=== PATIENT | female | born 1970 | race Caucasian/White ===

== ENCOUNTER 2017-06-16 22:09 | Emergency (ER) | payer OTHER, BC ==
[2017-06-16] MEDS ORDERED: EMTRICITABINE 200MG/TENOFOVIR 300MG PO STA (22:12)
[2017-06-16] MEDS ORDERED: RALTEGRAVIR POTASSIUM 400 MG TAB PO ONE (22:15)
[2017-06-16 22:16] VITALS: BP 110/77; PULSE 79; TEMP 98.3; BMI 23.6
--- NOTE | 2017-06-16 22:33 | PDOC ---
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 blood exposure, unknown status of patient referred here by K[facility] for PEP pmh: denies fhx: non-contrib ros: reviewed and otherwise negative o/e NAD nonicteric RRR cta a/p blood exposure d/w p r/b of PEP will initiate has [facility] fu tomorrow Past History - Past Medical History Allergies/Adverse Reactions: Allergies Allergy/AdvReac Type Severity Reaction Status Date / Time Sulfa (Sulfonamide Allergy Unknown Verified 06/16/17 22:11 Antibiotics) [Sulfa(Sulfonamide Antibiotics)] morphine Allergy Verified 06/16/17 22:11 Home Medications: Ambulatory Orders NK [No Known Home Medication] 10/14/15 Anemia: No Cancer: No Diabetes: No HTN: No Psychiatric Problems: No Seizures: No - Surgical History Appendectomy: Yes Neurologic Surgery: Yes (NECK C2-T2 FUSION 7 YEARS AGO) - Immunization History Td Vaccination: Yes TDAP Vaccination: Yes Immunization Up to Date: Yes - Suicide/Smoking/Psychosocial Hx Smoking Status: No Smoking History: Never smoked Years of Tobacco Use: 0 Have you smoked in the past 12 months: No Number of Cigarettes Smoked Daily: 0 Cigars Per Day: 0 Hx Alcohol Use: No Drug/Substance Use Hx: No Substance Use Type: None Hx Substance Use Treatment: No *DC/Admit/Observation/Transfer Diagnosis at time of Disposition: Occupational exposure in workplace - Discharge Dispostion Disposition: HOME Condition at time of disposition: Stable - Referrals - Patient Instructions Additional Instructions: Please follow up with KIRSTEN occupational health in AM - Post Discharge Activity Forms/Work/School Notes: Back to Work
== END 2017-06-16 22:41 | disposition home or self-care (01) ==
LOC: FER 22:09
DX: Z77.21 Contact with and (suspected) exposure to potentially hazardous body fluids (principal); X58.XXXA Exposure to other specified factors, initial encounter; Y93.89 Activity, other specified; Y92.9 Unspecified place or not applicable; Y99.0 Civilian activity done for income or pay
CPT/HCPCS: 99281-25

== ENCOUNTER 2018-11-20 20:22 | Emergency (ER) | payer OTHER ==
[2018-11-20 20:35] VITALS: BP 105/71; PULSE 67; TEMP 98.8; BMI 23.8
[2018-11-20 20:58] LABS: HCG,QUALITATIVE URINE Negative
[2018-11-20 21:09] LABS: EPITHELIAL CELLS MODERATE /hpf
[2018-11-20] MEDS ORDERED: NITROFURANTOIN MACROCRYSTAL 50 MG CAPSULE (FP) PO SCH (21:45)
[2018-11-20] MEDS ORDERED: NITROFURANTOIN MACROCRYSTAL 50 MG CAPSULE (FP) ONE (21:50)
--- NOTE | 2018-11-21 00:09 | PDOC ---
Documentation entered by Nadya Donovan SCRIBE, acting as scribe for Laurence Bartholomew MD. Laurence Bartholomew MD: This documentation has been prepared by the juvenalibeZion Lincy, SCRIBE, under my direction and personally reviewed by me in its entirety. I confirm that the documentation accurately reflects all work, treatment, procedures, and medical decision making performed by me. 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 The patient presents with decreased hearing in her left ear after 2 episodes of high- frequency radio noise go off in the ear. The patient reports for work they have to have a radio headset on her ears, which transmits a high-frequency noise. The patient reports she had an episode yesterday when the sound went off, and without much recovery period, she had another episode at 1:00 pm today. The patient reports since that episode shes been having decreased hearing in the left, which didnt improve by 6:00 pm, and decided to be evaluated. Denies tinnitus, sore throat, vision changes, drainage from the ear. The patient reports prior to coming evaluation, she went to the bathroom, and during urination, she had some dysuria and noticed some blood in the toilet. Denies back pain, urinary frequency, or urgency. Denies prior hx of UTIs. Past History - Past Medical History Allergies/Adverse Reactions: Allergies Allergy/AdvReac Type Severity Reaction Status Date / Time Sulfa (Sulfonamide Allergy Unknown Verified 11/20/18 20:24 Antibiotics) [Sulfa(Sulfonamide Antibiotics)] morphine Allergy Verified 11/20/18 20:24 Home Medications: Ambulatory Orders Nitrofurantoin Monohyd/M-Cryst [Macrobid -] 100 mg PO BID #14 capsule 11/20/18 Anemia: No Cancer: No COPD: No Diabetes: No HTN: No Psychiatric Problems: No Seizures: No Other medical history: TRIGEMINAL NEURALGIA - Surgical History Appendectomy: Yes Neurologic Surgery: Yes (NECK C2-T2 FUSION 7 YEARS AGO) - Immunization History Td Vaccination: Yes TDAP Vaccination: Yes Immunization Up to Date: Yes - Suicide/Smoking/Psychosocial Hx Smoking Status: No Smoking History: Never smoked Years of Tobacco Use: 0 Have you smoked in the past 12 months: No Number of Cigarettes Smoked Daily: 0 Cigars Per Day: 0 Information on smoking cessation initiated: No Hx Alcohol Use: No Drug/Substance Use Hx: No Substance Use Type: None Hx Substance Use Treatment: No Review of Systems - Review of Systems Able to Perform ROS?: Yes Comments:: 11/20/18 21:47 Constitutional - Pt denies Fever, Chills, weakness, HEENT: +left ear: decreased hearing. denies vision changes, sore throat, draining from the ear. Respiratory: Denies cough, sob, hemoptysis Cardiac: denies chest pain, palpitations, lightheadedness, leg swelling Abd/GI: denies abd pain, nausea, vomiting, blood per rectum, melena, diarrhea : +hematuria and dysuria. Denies frequency, discharge Musculoskeletal - denies back pain, joint swelling skin - denies bruising, erythema, rash neurological: denies headache, numbness, focal weakness, tingling, ataxia, weakness hematologic: denies anemia, easy bruising, easy bleeding *Physical Exam - Vital Signs Last Vital Signs Temp Pulse Resp BP Pulse Ox 98.8 F 67 18 105/71 98 11/20/18 20:22 11/20/18 20:22 11/20/18 20:22 11/20/18 20:22 11/20/18 20:22 - Physical Exam Comments: 11/20/18 21:48 GENERAL: The patient is awake, alert, and fully oriented, in no acute distress. HEAD: Normal with no signs of trauma. EYES: Pupils equal, round and reactive to light, extraocular movements intact, sclera anicteric, conjunctiva clear with no pallor. ENT: +external auditory canal and tympanic membrane normal in both ears. No evidence of blood or other fluid in the canal. No evidence of perforation of the TMs. nares patent, oropharynx clear without exudates. Moist mucous membranes. NECK: Normal range of motion, supple without lymphadenopathy, JVD, or masses. LUNGS: Breath sounds equal, clear to auscultation bilaterally. No wheeze/ crackles. HEART: Regular rate and rhythm, normal S1 and S2 without murmur or rub. ABDOMEN: Soft/nontender/nondistended. EXTREMITIES: Normal range of motion, no edema. No clubbing or cyanosis. No cords, erythema, or tenderness. NEUROLOGICAL: Normal speech, normal gait. PSYCH: Normal mood, normal affect. SKIN: Warm, Dry, normal turgor, no rashes or lesions noted. ED Treatment Course - ADDITIONAL ORDERS Additional order review: Laboratory Results 11/20/18 20:33 Urine Color Yellow Urine Appearance Cloudy Urine pH 7.0 Urine Protein Trace Urine Glucose (UA) Negative Urine Ketones Negative Urine Blood 3+ H Urine Nitrite Positive H Urine Bilirubin Negative Urine Urobilinogen 1.0 Ur Leukocyte Esterase 2+ Urine RBC 40-60 Urine WBC 20-40 Ur Transition Epith Cell Moderate Urine Bacteria Many Urine HCG, Qual Negative Medical Decision Making - Medical Decision Making As noted above, this 47-year-old woman, [employer] presents with left ear discomfort and decreased hearing in that ear for the last several hours after EMS radio high-frequency tone was transmitted into the left ear. Patient has had milder symptoms after similar transmission of this tone but today's symptoms have persisted. No previous history of ear discomfort/ear infections/ hearing loss. Patient also noted hematuria this afternoon without significant dysuria/urinary frequency or urgency. No fever or abdominal pain. 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 Urinalysis/PGU sent: Urinalysis highly suggestive UTI with + nitrate/+LE/ multiple red blood cells and white blood cells/moderate epi/many bacteria. PGU negative Urine culture and sensitivity sent. Patient has ALLERGY to sulfa (as well as morphine). Patient will be started on nitrofurantoin 100 mg twice a day for one week with first dose given here in the emergency room. The patient will be contacted if urine culture is negative or if bacteria is resistant to nitrofurantoin *DC/Admit/Observation/Transfer Diagnosis at time of Disposition: Otalgia of left ear Hematuria Qualifiers: Hematuria type: unspecified type Qualified Code(s): R31.9 - Hematuria, unspecified - Discharge Dispostion Disposition: HOME Condition at time of disposition: Stable - Prescriptions Prescriptions: Nitrofurantoin Monohyd/M-Cryst [Macrobid -] 100 mg PO BID #14 capsule - Referrals Referrals: Ender Jack MD [Primary Care Provider] - Michel Wright MD [Staff Physician] - - Patient Instructions Printed Discharge Instructions: DI for Ear Pain-Adult Additional Instructions: call Dr Wright(ENT) on Thursday, November 22 to arrange follow-up appointment place small amount of cotton in left ear while at work Macrobid twice a day for one week; drink plenty of water We will call you if UTI not present on culture(so that you can stop antibiotic) Return to ER if symptoms worsen - Post Discharge Activity
== END 2018-11-20 22:04 | disposition home or self-care (01) ==
LOC: FER 20:22
CPT/HCPCS: 81003; 81015; 84703; 87086; 87186; 99283-25

== ENCOUNTER 2020-05-23 07:07 | Emergency (ER) | payer BC, OTHER ==
[2020-05-23 07:19] VITALS: BP 133/75; PULSE 76; TEMP 98.9; BMI 25.7
== END 2020-05-23 08:10 | disposition home or self-care (01) ==
LOC: FER 07:07
DX: H92.02 Otalgia, left ear (principal)
CPT/HCPCS: 99282-25

== ENCOUNTER 2020-12-19 23:28 | Emergency (ER) | payer BC, OTHER ==
[2020-12-19 23:38] VITALS: BP 117/74; PULSE 66; TEMP 98.8; BMI 25.6
[2020-12-20] MEDS ORDERED: KETOROLAC TROMETHAMINE 60 MG/2 ML VIAL IM ONE (00:47)
[2020-12-20] MEDS ORDERED: KETOROLAC TROMETHAMINE 60 MG/2 ML VIAL ONE (01:00)
== END 2020-12-20 01:07 | disposition home or self-care (01) ==
LOC: FER 23:28
PROC: 3E0233Z Introduction of Anti-inflammatory into Muscle, Percutaneous Approach (ICD-10-PCS; principal; 2020-12-19)
DX: G43.909 Migraine, unspecified, not intractable, without status migrainosus (principal)
CPT/HCPCS: 70450-TC; 99284-25

== ENCOUNTER 2024-07-19 11:18 | Emergency (ER) | payer BC, OTHER ==
[2024-07-19 13:11] VITALS: BP 125/81; PULSE 71; RESP 18; TEMP 97.9; BMI 24.7
== END 2024-07-19 11:47 | disposition home or self-care (01) ==
LOC: FER 11:18
DX: F41.9 Anxiety disorder, unspecified (principal); F43.0 Acute stress reaction; R07.89 Other chest pain; R00.2 Palpitations; R11.0 Nausea
CPT/HCPCS: 93005; 93010; 99283-25